=== PATIENT | male | born 1995 | race Caucasian/White ===

== ENCOUNTER 2017-08-16 14:45 | Emergency (ER) | payer SELFPAY ==
[~2017-08-16] VITALS: Ht 172.7 cm; Wt 93.0 kg
[2017-08-16 15:17] LABS: BASOPHILS # (AUTO) 0.1 K/uL (0.0-8.0); BASOPHILS % (AUTO) 0.9 % (0.0-2.0); EOSINOPHILS % (AUTO) 0.5 % (0.0-7.0); HEMATOCRIT 43.2 % (36.7-47.1); HEMOGLOBIN 14.8 g/dL (12.5-16.3); LYMPHOCYTES # (AUTO) 2.5 K/uL (20.0-40.0); LYMPHOCYTES % (AUTO) 27.6 % (20.5-51.5); MEAN CORPUSCULAR HEMOGLOBIN 30.1 uug (23.8-33.4); MEAN CORPUSCULAR HGB CONC 34 g/dL (32.5-36.3); MEAN CORPUSCULAR VOLUME 88.1 fL (73.0-96.2); MONOCYTES # (AUTO) 0.7 K/uL (2.0-10.0); MONOCYTES % (AUTO) 7.4 % (0.0-11.0); NEUTROPHILS # (AUTO) 5.8 K/uL (1.8-8.9); NEUTROPHILS % (AUTO) 63.6 % (38.5-71.5); PLATELET COUNT (AUTO) 258 K/uL (152-348); WHITE BLOOD COUNT (AUTO) 9.2 K/uL (3.6-10.2)
[2017-08-16 15:21] LABS: CREATININE 1.3 mg/dL (0.6-1.3); POTASSIUM 3.3 mmol/L (3.5-5.1)
[2017-08-16 15:33] LABS: BILIRUBIN,DIRECT 0.1 mg/dL (0.0-0.2); BILIRUBIN,TOTAL 0.4 mg/dL (0.2-1.0); TOTAL PROTEIN, SERUM 8.3 g/dL (6.4-8.2)
[2017-08-16] MEDS ORDERED: LORAZEPAM 1 MG TABLET ONE (15:38)
[2017-08-16] MEDS ORDERED: LORAZEPAM 0.5 MG TABLET PO ONE (15:45)
--- NOTE | 2017-08-16 16:00 | NUR ---
Patient is resting comfortably in bed with eyes closed
--- NOTE | 2017-08-16 16:25 | NUR ---
Patient discharged to home in stable conditon. Written and verbal after care instructions given. Patient verbalizes understanding of instructions. No CP. No SOB. Patient A & O X4.
[2017-08-16 16:26] VITALS: BP 110/71
== END 2017-08-16 16:28 | disposition home or self-care (01) ==
LOC: ER 14:46
DX: T40.7X5A Adverse effect of cannabis (derivatives), initial encounter (principal); Y92.89 Other specified places as the place of occurrence of the external cause
CPT/HCPCS: 36415; 80048; 80076; 85025; 93005; 99285; A4663